=== PATIENT | male | born 1940 | race Caucasian/White ===

== ENCOUNTER 2017-03-20 07:03 | Outpatient (CLI) | payer MEDICARE, BC | END 2017-03-20 07:04 | disposition home or self-care (01) | LOC: BICMRI 07:03 | PROVIDERS: ATTEND Neurological Surgery | DX: M47.12 Other spondylosis with myelopathy, cervical region (principal); M99.81 Other biomechanical lesions of cervical region | CPT/HCPCS: 72141 ==

== ENCOUNTER 2020-01-31 17:51 | Inpatient (IN) | payer MEDICARE, BC, OTHER ==
[2020-01-31] MEDS ORDERED: Aspirin Chewable 81 MG TAB ONE (18:19)
[2020-01-31 18:31] LABS: Hemoglobin 12.3 g/dL (14.0-18.0); Mean Corpuscular HGB CONC 34.9 g/dL (32.0-36.0); Mean Corpuscular Hemoglobin 32.9 pg (27.0-31.0); Mean Corpuscular Volume 94.1 fL (78.0-98.0); Mean Platelet Volume 9.2 fL (7.4-10.4); Platelet Count 260 thou/uL (130-400); Red Blood Cell (RBC) Count 3.74 mill/uL (4.70-6.10); White Blood Cell (WBC) Count 14.7 thou/uL (4.8-10.8)
[2020-01-31] MEDS ORDERED: cefTRIAXone\\ROCEPHIN 2 GM VIAL ONE ×2 (18:45→18:46)
--- NOTE | 2020-01-31 18:48 | RAD ---
PORTABLE CHEST: 01/31/20 HISTORY: Weakness. Lungs appear clear. No infiltrate or edema. Vascular markings within normal range. Heart and mediasti num unremarkable. IMPRESSION: No acute process. POS: AGW
[2020-01-31 19:07] LABS: Band 20 % (5-11); Lymphocytes 4 % (21-51); MDiff Complete? YES; Monocytes 6 % (0-10); Neutrophil 70 % (42-75); Platelet Morphology Comment Appears Adequate; Polychromasia SLIGHT = 2-3 cells (100X) (0-2/hpf)
[2020-01-31 19:27] LABS: Albumin 3.8 g/dL (3.4-4.8)
[2020-01-31 19:28] LABS: Chloride 107 mmol/L (98-107); Potassium 3.3 mmol/L (3.5-5.1)
[2020-01-31 19:29] LABS: Calcium 8.9 mg/dL (7.8-10.44); Sodium 139 mmol/L (136-145)
[2020-01-31 19:30] LABS: Globulin 3.3 g/dL (2.4-3.5); Glucose 124 mg/dL (83-110); Protein, Total 7.1 g/dL (5.8-8.1)
[2020-01-31] MEDS ORDERED: Vancomycin HCl 1.25 GM in Sodium Chloride 0.9% 250 ML 250 ML IVPB SCH (19:30)
[2020-01-31 19:31] LABS: Anion Gap 14 mmol/L (10-20); Carbon Dioxide 21 mmol/L (23-31)
[2020-01-31 19:32] LABS: Bilirubin, Total 0.4 mg/dL (0.2-1.2)
[2020-01-31 19:33] LABS: Alkaline Phosphatase 38 U/L (40-110); Calc. Creatinine Clearance 0 mL/min (70-130); Estimated GFR-MDRD 79
[2020-01-31 19:34] LABS: BUN (Urea Nitrogen) 12 mg/dL (8.4-25.7)
[2020-01-31 19:35] LABS: AST (SGOT) 25 U/L (5-34)
[2020-01-31 19:36] LABS: ALT (SGPT) 18 U/L (8-55)
[2020-01-31 20:21] LABS: SARS-CoV-2 NAA Rapid Test Not Detected (NotDetected)
[2020-01-31 20:48] LABS: Bilirubin Negative (Negative); Blood, Urine Negative (Negative); Clarity Clear (Clear); Glucose, Urine (Dipstick) Normal (Negative); Ketone, Urine Negative (Negative); Leukocyte Negative Leu/uL (Negative); Nitrite Negative (Negative); Protein, Urine (Dipstick) Negative (Neg-Trace); Specific Gravity, Urine 1.008 (1.002-1.036); Urobilinogen Normal mg/dL (Less than 2)
--- NOTE | 2020-01-31 21:30 | PDOC.FPRHP ---
- History of Present Illness Chief Complaint: SOB History of Present Illness: Patient is a 79 year old male with a history of HTN, depression and gout who presented to the ED with reports of generalized weakness x 1 week. No recent fall or trauma. He was unable to stand this am therefore his called EMS. The patient reports generalized fatigue. Denies headache, fever, chills, body aches, sore throat, cough, congestion, nausea, abdominal pain and edema. Denies sick contacts. Per the patient's , the patient has been depressed since 07/24. He recently saw a certified histologic technician for possible arthritis and was started on pregaba 3 days ago. She notes the patient was possibly confused this am as he repeatedly spoke about a sandwich and did not answer questions appropriately. ED Course: In the ED, patient noted to be tachycardic and tachypneic, now resolved with 1 L NS. Initially febrile at 102.8, but improved with Tylenol. COVID initially reported as positive by lab, however final result was negative. - Allergies/Adverse Reactions Allergies Allergy/AdvReac Type Severity Reaction Status Date / Time No Known Allergies Allergy Verified 02/01/20 02:04 - Home Medications Medication Instructions Recorded Confirmed Type Allopurinol 300 mg PO DAILY 09/14/14 02/01/20 History Calcium Carbonate [Tums] 500 mg PO PCHS PRN 09/14/14 02/01/20 History NIFEdipine [Procardia XL] 30 mg PO DAILY 09/14/14 02/01/20 History oxyCODONE HCl/Acetaminophen 1 tablet PO Q4HR PRN 09/14/14 02/01/20 History [Percocet] Acetaminophen [Tylenol] 650 mg PO Q4HR PRN 02/01/20 02/01/20 History DULoxetine [Cymbalta] 30 mg PO DAILY 02/01/20 02/01/20 History Diclofenac Sodium [Diclofenac 1 applic TOP BID PRN 02/01/20 02/01/20 History Sodium 1% Gel] Lidocaine 5% Patch [Lidoderm 5% 1 patch TOP DAILY 02/01/20 02/01/20 History Patch] Pregabalin 100 mg PO BID 02/01/20 02/01/20 History - History PMHx: HTN, depression, gout, arthritis PSHx: Hernia repair, L knee surgery FHx: Noncontributory Social: Lives at home with . Ambulates without assistance. - Review of Systems General: reports: fatigue. denies: fever/chills Eyes: denies: eye pain, vision changes ENT: denies: nasal congestion, rhinorrhea Respiratory: denies: cough, congestion, shortness of breath Cardiovascular: denies: chest pain, edema Gastrointestinal: denies: nausea, diarrhea, constipation, abdominal pain Genitourinary: denies: dysuria, polyuria Skin: denies: rashes, jaundice Musculoskeletal: denies: pain, tenderness Neurological: reports: weakness (generalized). denies: syncope, seizure Psychological: reports: depression. denies: anxiety - Vital signs BP: [122/70] HR: [85] RR: [18] Tmax: [102.8F] Pox: [94]% on [RA] Wt: [68kg] - Physical Exam Constitutional: NAD, awake, alert and oriented HEENT: normocephalic and atraumatic, conjunctiva clear, MMM Neck: FROM, trachea midline Chest: no-tender to palpation Heart: RRR, normal S1/S2, pulses present, no edema Lungs: CTAB, no respiratory distress, good air movement Abdomen: soft, non-tender, bowel sounds present Musculoskeletal: normal structure, ROM grossly normal Neurological: no focal deficit -Neurological: A&Ox3 Skin: no rash/lesions Heme/Lymphatic: no unusual bruising or bleeding Psychiatric: normal mood and affect FMR H&P: Results - Labs Result Diagrams: 02/01/20 06:28 02/01/20 06:28 Lab results: WBC 14.7 thou/uL (4.8-10.8) H 01/31/20 18:19 Hgb 12.3 g/dL (14.0-18.0) L 01/31/20 18:19 Hct 35.2 % (42.0-52.0) L 01/31/20 18:19 MCV 94.1 fL (78.0-98.0) 01/31/20 18:19 Plt Count 260 thou/uL (130-400) 01/31/20 18:19 Band Neuts % (Manual) 20 % (5-11) H 01/31/20 18:19 Sodium 139 mmol/L (136-145) 01/31/20 19:05 Potassium 3.3 mmol/L (3.5-5.1) L 01/31/20 19:05 Chloride 107 mmol/L (98-107) 01/31/20 19:05 Carbon Dioxide 21 mmol/L (23-31) L 01/31/20 19:05 BUN 12 mg/dL (8.4-25.7) 01/31/20 19:05 Creatinine 0.92 mg/dL (0.7-1.3) 01/31/20 19:05 Glucose 124 mg/dL (83-110) H 01/31/20 19:05 Lactic Acid 2.0 mmol/L (0.5-2.2) 01/31/20 18:19 Calcium 8.9 mg/dL (7.8-10.44) 01/31/20 19:05 Total Bilirubin 0.4 mg/dL (0.2-1.2) 01/31/20 19:05 AST 25 U/L (5-34) 01/31/20 19:05 ALT 18 U/L (8-55) 01/31/20 19:05 Alkaline Phosphatase 38 U/L (40-110) L 01/31/20 19:05 Serum Total Protein 7.1 g/dL (5.8-8.1) 01/31/20 19:05 Albumin 3.8 g/dL (3.4-4.8) 01/31/20 19:05 Urine Ketones Negative mg/dL (Negative) 01/31/20 20:30 Urine Blood Negative (Negative) 01/31/20 20:30 Urine Nitrite Negative (Negative) 01/31/20 20:30 Ur Leukocyte Esterase Negative Graham/uL (Negative) 01/31/20 20:30 - EKG Interpretation EKG: Sinus tachycardia at 109. RBBB. FMR H&P: A/P - Plan SIRS, unknown source Met SIRs criteria due to WBC 14 with bands, tachycardic, fever on initial presentation. Procal 0.11. LA 2. CXR negative. UA negative. Covid neg. Flu neg. Cause could be bacteremia with unidentified source vs. inflammatory process given recent visit with certified histologic technician. -Received vanc, ceftriaxone in ED (01/31). Will not continue abx at this time -F/u blood cultures -F/u ESR, CPR -PT/OT consult Hypokalemia -K 3.3 in ED -Supplement as needs HTN -Continue home meds Depression -Continue home meds Gout -Continue home meds PCP: [facility] Code: FULL Dispo: admit to medical floor for observation FMR H&P: Upper Level - Plan Date/Time: 01/31/202127 I, Juliette Koo, have evaluated this patient and agree with findings/plan as outlined by engineer intern resident. Pertinent changes/additions are listed here. 79 yo M reports presenting to ED for weakness today. History difficult to obtain and vague. He reports a one week history of feeling week that was worse today. Called . She reports he has been more grumpy this past week. No other symptoms or complaints. He was sitting in his chair this evening when he said he couldnt get up because his legs felt so weak. She also felt he may have been confused, he kept talking about a sandwich. They live at home, he ambulates without assist. PMH: depression, HTN, gout, chronic back pain Given vanc, 2L, Rocephin, ASA in ED EKG: RBBB, new compared to 2013 ekg PE: Gen: NAD HEENT: Moist MM Heart: No stethescope available, was on precautions Lungs: No increased work of breathing Abd: soft, nontender, BS+, no masses or hernias Ext: no edema Skin: no rashes Psych: AOx3 SIRS, unknown source - WBC 14, tachycardic, fever on initial presentation - Procal 0.11, CXR negative, UA negative, covid neg, flu neg - History and ROS negative apart from a period of weakness today - Blood cultures pending, will not continue abx at this time but will consider adding back if continues to fever - Could be 2/2 inflammatory with hx of seeing certified histologic technician recently, no known diagnosis. No recent procedures or cause for a bacteremia. He does have an implanted pain pump it sounds like for 2-3 years. Ordered ESR/CRP. - PT/OT for weakness PCP: [facility] Attending: Vinod Code: FULL Dispo: admit to medical floor for observation, expected LOS <48h Addendum - Attending - Attending Attestation Date/Time: 01/31/202223 I personally evaluated the patient and discussed the management with resident team I agree with the History, Examination, Assessment and Plan documented above with any addition or exceptions noted below. 79 yo male brought to ER by EMS due to AMS and weakness. Noted to meet SIRS criteria with elevated HR and RR with fever. Now all resolved. Mild elevated WBC s. New medication started recently. Suspecting mild encephalopathy due to medication. Unsure cause of SIRs. Most of infectious workup negative at this time. Awaiting inflammatory markers and blood cultures. Due to appearance on exam do not suspect encephalopathy related to infectious etiology due to resolution prior to EMS arrival. Obs until AM. Cornelio
[2020-01-31] MEDS ORDERED: Acetaminophen 325 MG TAB PO PRN (23:37)
[2020-01-31] MEDS ORDERED: Ondansetron ODT 4 MG TAB PO PRN (23:37)
[2020-01-31] MEDS ORDERED: Ondansetron PF 4 MG/2 ML Vial IVP PRN (23:37)
[2020-02-01 02:34] VITALS: BMI 20.4
[2020-02-01] MEDS ORDERED: Potassium Chloride 40 MEQ in Premix Bag 1 BAG IVPB SCH (02:45)
[2020-02-01] MEDS ORDERED: Potassium Chloride 40 MEQ in Sodium Chloride 0.9% 250 ML 250 ML IVPB SCH (03:00)
[2020-02-01] MEDS ORDERED: Calcium Carbonate 500 MG ChewTAB PO PRN (05:23)
[2020-02-01] MEDS ORDERED: Diclofenac 1% 100 GM GEL TP PRN (06:16)
[2020-02-01] MEDS ORDERED: oxyCODONE/Acetaminophen 5 mg/325 mg Tablet PO PRN (06:21)
[2020-02-01 06:40] LABS: #Basophils 0.1 thou/uL (0.0-0.2); #Eosinphils 0.1 thou/uL (0.0-0.7); #Monocytes 1.3 thou/uL (0.11-0.59); #Neutrophils 11.2 thou/uL (1.40-6.50); %Basophils 0.4 % (0.0-1.0); %Eosinophils 0.5 % (0.0-10.0); %Lymphocytes 13.7 % (21.0-51.0); %Monocytes 8.8 % (0.0-10.0); %Neutrophils 76.6 % (42.0-75.0); Hemoglobin 12.7 g/dL (14.0-18.0); Mean Corpuscular HGB CONC 33.9 g/dL (32.0-36.0); Mean Corpuscular Hemoglobin 32.5 pg (27.0-31.0); Mean Corpuscular Volume 95.7 fL (78.0-98.0); Mean Platelet Volume 8.2 fL (7.4-10.4); Platelet Count 237 thou/uL (130-400); RBC Distribution Width 14.1 % (11.5-14.5); Red Blood Cell (RBC) Count 3.93 mill/uL (4.70-6.10); White Blood Cell (WBC) Count 14.6 thou/uL (4.8-10.8)
[2020-02-01 06:57] LABS: Anion Gap 14 mmol/L (10-20); BUN (Urea Nitrogen) 10 mg/dL (8.4-25.7); Calc. Creatinine Clearance 73 mL/min (70-130); Calcium 9.5 mg/dL (7.8-10.44); Carbon Dioxide 23 mmol/L (23-31); Chloride 107 mmol/L (98-107); Estimated GFR-MDRD Greater than 90; Glucose 108 mg/dL (83-110); Potassium 3.5 mmol/L (3.5-5.1); Sodium 140 mmol/L (136-145)
--- NOTE | 2020-02-01 07:22 | PDOC.FM ---
- Subjective Subjective: Pt is doing well today. He has no complaints. He was up and walking around his room. He was AAO x 3. He is seen by rheum for what he believes is RA in lumbar spine. He apparently was started on pregablin recently. He denied fever, chills at this time. - Objective Vital Signs & Weight: Vital Signs (12 hours) Temp Pulse Resp BP Pulse Ox 02/01/20 04:00 97.5 F L 76 16 155/74 H 98 02/01/20 00:30 97.6 F 69 16 129/61 98 Weight Weight 68.22 kg I&O: 01/31/20 02/01/20 02/02/20 06:59 06:59 06:59 Intake Total 430 Balance 430 Result Diagrams: 02/01/20 06:28 02/01/20 06:28 Phys Exam - Physical Examination Constitutional: NAD HEENT: PERRLA, moist MMs Respiratory: no wheezing, clear to auscultation bilateral Cardiovascular: RRR, no significant murmur Gastrointestinal: soft, positive bowel sounds Musculoskeletal: no edema, pulses present Neurological: non-focal, moves all 4 limbs Psychiatric: normal affect, A&O x 3 Dx/Plan - Plan Plan: SIRS, unknown source Met SIRs criteria due to WBC 14 with bands, tachycardic, fever on initial presentation. Procal 0.11. LA 2. CXR negative. UA negative. Covid neg. Flu neg. Cause could be bacteremia with unidentified source vs. inflammatory process given recent visit with electrophysiologist for what he states is RA. -Received vanc, ceftriaxone in ED (01/31). Will not continue abx at this time -F/u blood cultures -ESR, CRP elevated -PT/OT consult Hypokalemia - improved -Supplement as needs HTN -Continue home meds Depression -Continue home meds Gout -Continue home meds PCP: [facility] Code: FULL Dispo: admit to medical floor for observation Addendum - Attending - Attending Attestation Date/Time: 02/01/20 2352 I personally evaluated the patient and discussed the management with Dr. Grecia childers. I agree with the History, Examination, Assessment and Plan documented above with any addition or exceptions noted below.
[2020-02-01] MEDS ORDERED: Lidocaine 5% Patch TD SCH (09:00)
[2020-02-01] MEDS ORDERED: DULoxetine 30 MG CAP PO SCH (09:00)
[2020-02-01] MEDS ORDERED: NIFEdipine XL 30 MG TAB PO SCH (09:00)
[2020-02-01] MEDS ORDERED: Enoxaparin Sodium 40 MG/0.4 ML SYRINGE SC SCH (09:00)
[2020-02-01] MEDS ORDERED: Allopurinol 300 MG TAB PO SCH (09:00)
[2020-02-01 12:25] VITALS: BP 141/74; TEMP 97.6
[2020-02-01] MEDS ORDERED: Lidocaine Patch Removal 1 EACH TOP SCH (21:00)
--- NOTE | 2020-02-02 13:15 | DIS ---
DATE OF ADMISSION: 01/31/2020 DATE OF DISCHARGE: 02/01/2020 RESIDENT: Gurjit Poole, DO DISCHARGE ATTENDING: Dr. Darrel Qiu. ADMITTING ATTENDING: Dr. Sharon Brock. CONSULTS: None. PROCEDURES: Chest x-ray on 01/31/2020 revealed no acute process. PRIMARY DIAGNOSES: 1. Viral infection versus stress response. 2. Hypokalemia. 3. Systemic inflammatory response syndrome. SECONDARY DIAGNOSES: 1. Hypertension. 2. Depression. 3. Gout. DISCHARGE MEDICATIONS: 1. Nifedipine 30 mg p.o. daily. 2. Tums 500 mg p.o. at night p.r.n. reflux. 3. Percocet 7.5 mg/325 mg p.o. q.4 hour p.r.n. pain. 4. Allopurinol 300 mg p.o. daily. 5. Cymbalta 30 mg p.o. daily. 6. Lidocaine 5% patch, one patch topical daily. 7. Pregabalin 100 mg p.o. b.i.d. 8. Tylenol 650 mg p.o. q.4 hour p.r.n. pain. 9. Diclofenac 1% gel, one topical application b.i.d. p.r.n. pain. HISTORY OF PRESENT ILLNESS/HOSPITAL COURSE: Kvng Land is a 79-year-old gentleman, history of hypertension, depression, and gout. He was admitted to the hospital for 1-week history of generalized weakness. He does state that he was downsizing his house and has been under significant amount of stress recently. His was concerned as well. He did not have any falls or traumas, but just felt weak and fatigued. He also is seen by Rheumatology for what he says is rheumatoid arthritis and was recently started on pregabalin. Patient was admitted and noted to have a temperature of 102.8, but the rest of his stay, he was afebrile. He was otherwise asymptomatic and his COVID test was negative. On the day of discharge, I spoke with the patient and he felt back to his baseline. He and his seemed to think that this could be possibly secondary to the amount of stress he was under with moving homes. This is likely that this could have exacerbated how he was feeling. He has also gout and rheumatoid arthritis, which can cause fevers. It is also possible that he had a viral infection that could have caused his symptoms. Blood cultures revealed no growth at 48 hours. Influenza was negative as well. Of note, he did have a white blood cell count elevation of 14.7, but this could all be stress related. Otherwise, patient's ESR was elevated at 33 and CRP was elevated at 0.96. Again, could be from rheumatoid arthritis. His procalcitonin was 0.11, so we did not feel the need to treat for a bacterial infection at this time. The patient's potassium was 3.3 and repleted. Discussed the patient needs to follow up with his primary care provider within the next week. We will call patient if blood cultures are positive. Return precautions were discussed with the patient. DISPOSITION: Stable. DISCHARGE INSTRUCTIONS: 1. Location: [facility]. 2. Diet: Heart-healthy. 3. Activity: As tolerated. 4. Followup: Follow up with Ulisses Menezes primary care provider within 7 days. 5. Follow up with Rheumatology to discuss medications. Job ID: [id number]
== END 2020-02-01 12:35 | disposition home or self-care (01) | DRG 866 ==
LOC: ERS 17:51 → ERHOLD 20:49 → ONC 02-01 00:27
PROVIDERS: ADMIT Student in an Organized Health Care Education/Training Program; ATTEND Student in an Organized Health Care Education/Training Program
DX: B34.9 Viral infection, unspecified (principal); R65.10 Systemic inflammatory response syndrome (SIRS) of non-infectious origin without acute organ dysfunction; F32.9 Major depressive disorder, single episode, unspecified; I10 Essential (primary) hypertension; M19.90 Unspecified osteoarthritis, unspecified site; M10.9 Gout, unspecified; Z20.828 Contact with and (suspected) exposure to other viral communicable diseases; E87.6 Hypokalemia; G89.29 Other chronic pain; M54.9 Dorsalgia, unspecified; Z87.891 Personal history of nicotine dependence; Z79.899 Other long term (current) drug therapy; I45.10 Unspecified right bundle-branch block; M06.9 Rheumatoid arthritis, unspecified; F43.9 Reaction to severe stress, unspecified
CPT/HCPCS: 36415; 71045; 80048; 80053; 81003; 83605; 84145; 85025; 85652; 86140; 87040; 87804; 93005; 94760; 96365; 96367; J0696; J1650; J3370; J3480; J7050; U0002

== ENCOUNTER 2020-08-14 06:53 | Day surgery (SDC) | payer MEDICARE, BC ==
[2020-08-10 11:51] VITALS: BMI 20.3
[2020-08-14 08:10] VITALS: BP 124/74; TEMP 98.2
[2020-08-14] MEDS ORDERED: Iopamidol-M 300 61% 15 ML VIAL ONE (09:13)
== END 2020-08-14 10:00 | disposition home or self-care (01) ==
LOC: RAD 06:53
PROVIDERS: ATTEND Neurological Surgery
PROC: B02B10Z Computerized Tomography (CT Scan) of Spinal Cord using Low Osmolar Contrast, Unenhanced and Enhanced (ICD-10-PCS; principal; 2020-08-14)
DX: M48.061 Spinal stenosis, lumbar region without neurogenic claudication (principal); M43.16 Spondylolisthesis, lumbar region; M54.16 Radiculopathy, lumbar region; M40.204 Unspecified kyphosis, thoracic region; M51.34 Other intervertebral disc degeneration, thoracic region; I70.0 Atherosclerosis of aorta; K80.20 Calculus of gallbladder without cholecystitis without obstruction; K57.30 Diverticulosis of large intestine without perforation or abscess without bleeding; I10 Essential (primary) hypertension; M10.9 Gout, unspecified; M19.90 Unspecified osteoarthritis, unspecified site; E78.5 Hyperlipidemia, unspecified
CPT/HCPCS: 62305; 72129; 72132; Q9967